=== PATIENT | male | born 1955 | race Hispanic/Latino ===

== ENCOUNTER 2023-04-13 22:38 | Emergency (ER) | payer OTHER, SELFPAY ==
[2023-04-13 22:45] VITALS: BP 127/80; PULSE 100; RESP 16; TEMP 37.4; O2SAT 97
--- NOTE | 2023-04-13 23:20 | ED.EPISTAXIS ---
HPI - Epistaxis General Chief complaint: Epistaxis Stated complaint: nosebleed Time Seen by Provider: 04/13/23 23:01 Source: patient Mode of arrival: ambulatory Limitations: no limitations History of Present Illness HPI Narrative: This is a 68 year old male that presents to the ER for right sided epistaxis ongoing today. Reports he was seen at [facility] today and was able to be discharged without packing. Has continued to have bleeding today which prompted him to be seen. Denies fevers. Related Data Allergies Allergy/AdvReac Type Severity Reaction Status Date / Time No Known Allergies Allergy Verified 04/13/23 22:52 Review of Systems Review of Systems: CONSTITUTIONAL: Denies fever ENT: Reports rhinorrhea, congestion, epistaxis and otalgia All systems reviewed & are unremarkable except as noted in HPI and below PMFSH Past Medical History Medical History (Updated 04/14/23 @ 00:49 by Nanette Lucero PA-C) History of hypertension Social History Social History (Updated 04/13/23 @ 23:25 by Nanette Lucero PA-C) Substance use: never Exam Narrative: GENERAL: Well-appearing, well-nourished, and in no acute distress. HEAD: Normocephalic, atraumatic. EYES: EOMI. ENT: Blood clot in the right nare. Mucous membranes moist. Oropharynx without tonsillar hypertrophy exudate or other lesions. Fluid behind the bilateral TMs which are bulging. Right TM erythematous with some blood behind the TM as well NECK: Supple. No adenopathy or masses. CHEST: No respiratory distress. HEART: Regular rate EXTREMITIES: Normal range of motion. No edema. SKIN: Warm, dry, no rash. NEURO: No focal deficits. Alert and oriented x3. PSYCH: Normal mood and affect Course Vital Signs Vital signs: Vital Signs Temperature 99.3 F 04/13/23 22:45 Pulse Rate 100 04/13/23 22:45 Respiratory Rate 16 04/13/23 22:45 Blood Pressure 127/80 04/13/23 22:45 Pulse Oximetry 97 04/13/23 22:45 Oxygen Delivery Room Air 04/13/23 22:45 Temperature 99.3 F 04/13/23 22:45 Pulse Rate 89 04/14/23 00:46 Respiratory Rate 17 04/14/23 00:46 Blood Pressure 132/91 H 04/14/23 00:46 Pulse Oximetry 98 04/14/23 00:46 Oxygen Delivery Room Air 04/13/23 22:45 Procedures Epistaxis Control right: Epistaxis Control Date: 04/14/23 Epistaxis Control Time: 00:15 Nose Prepped With: oxymetazoline Direct Inspection: unable to visualize Clots Removed by: manually Cautery Used: none Device Inserted: nasal tampon Device Size: 5 Patient Tolerated Procedure: well and no complications MDM - Epistaxis MDM Narrative Medical decision making narrative: Patient presents to the emergency department for epistaxis ongoing today. His vitals are stable. Bleeding controlled with rapid rhino. He is not on any anticoagulation. Will be given follow up with ENT. He was given warnings to return to the ER Also endorsing right ear pain. Right TM is bulging and erythematous. Will be started on oral antibiotics Differential Diagnosis Differential diagnosis: Likely anterior epistaxis, posterior epistaxis and other (otitis media) Critical Care Time Critical Care Time Critical Care Time: No Discharge Plan Discharge Clinical Impression: Epistaxis Otitis media Qualifiers: Otitis media type: unspecified Chronicity: acute Qualified Code(s): H66.90 - Otitis media, unspecified, unspecified ear Patient Disposition: Home, Self-Care Condition: Stable Instructions: Antibiotic Form, Nosebleed (ED), Ear Infection (ED) Additional Instructions: Return to the emergency department if you experience fever, nosebleed you are unable to control, or any other symptoms that are concerning to you. Over the counter pain medication as needed. Leave rhino rocket (packing) in place. Take oral antibiotic as prescribed Follow up with ENT. Call to make an appointment Patient Language: Slovak Prescrip
[2023-04-14 00:46] VITALS: BP 132/91; PULSE 89; RESP 17; O2SAT 98
== END 2023-04-14 01:01 | disposition home or self-care (01) ==
PROVIDERS: Emergency Provider Physician Assistant
DX: R04.0 Epistaxis (principal); H66.91 Otitis media, unspecified, right ear; I10 Essential (primary) hypertension
CPT/HCPCS: 30901; 99283; A9270

== ENCOUNTER 2023-04-15 07:21 | Emergency (ER) | payer OTHER, SELFPAY ==
[2023-04-15 07:22] VITALS: BP 139/81; PULSE 92; RESP 16; TEMP 37.2; O2SAT 98
--- NOTE | 2023-04-15 08:00 | ED.EPISTAXIS ---
HPI - Epistaxis General Chief complaint: Epistaxis Stated complaint: nosebleed Time Seen by Provider: 04/15/23 07:52 History of Present Illness HPI Narrative: 68-year-old male presenting to the emergency department for evaluation of a Stax. Patient was seen on the for recurrent bleeding and did have a rhino rocket placed. Patient states he feels he is still having some bleeding through the left Gomez, the right Gomez and is packed with a rhino rocket. Patient states this morning he had onset of a sneezing fit and had some bleeding. Upon arrival to the emergency department bleeding has resolved. patient has not yet had follow-up with ENT. Related Data Allergies Allergy/AdvReac Type Severity Reaction Status Date / Time No Known Allergies Allergy Verified 04/15/23 07:27 Review of Systems Review of Systems: All systems reviewed & are unremarkable except as noted in HPI and below PMFSH Past Medical History Medical History (Updated 04/15/23 @ 10:49 by Tk Anderson) History of hypertension Social History Social History (Updated 04/13/23 @ 23:25 by Nanette Lucero PA-C) Substance use: never Exam Narrative: APPEARANCE: Well appearing, no pain, no distress, well-nourished. HEAD: normocephalic, atraumatic. EYES: PERRLA/EOMI, conjunctivae clear. NOSE: Normal no drainage, rhino rocket in place in the right naris, some dried blood in left naris, no posterior bleeding NECK: Supple. No adenopathy, no masses. RESPIRATORY: Airway patent, respirations nonlabored. Clear to auscultation bilaterally, no rales, rhonchi, wheezing. CARDIOVASCULAR: Regular rate and rhythm without murmurs rubs or gallops. ABDOMINAL: Soft, nontender, nondistended, normal bowel sounds MUSCULOSKELETAL: Moves all extremities. Strength/ROM intact, No edema, No calf tenderness. NEURO: Alert. Cranial nerves II through XII intact. Grossly intact SKIN: Warm, dry. Normal Color Course Course Emergency Course: 68-year-old male present to the emergency department for evaluation epistaxis this morning that had resolved in the emergency department. Patient states he did have a intense sneezing fit and did have some increased bleeding. Upon arrival emergency department presents bleeding was resolved. Patient had his packing removed, patient was able to clear clots by blowing his nose and patient had no actively bleeding but due to his frequent bleeding rhino rocket was replaced. Patient does have follow-up Dr. Santos tomorrow. Vital Signs Vital signs: Vital Signs Temperature 99 F 04/15/23 07:22 Pulse Rate 92 04/15/23 07:22 Respiratory Rate 16 04/15/23 07:22 Blood Pressure 139/81 04/15/23 07:22 Pulse Oximetry 98 04/15/23 07:22 Oxygen Delivery Room Air 04/15/23 07:22 Temperature 99 F 04/15/23 07:22 Pulse Rate 92 04/15/23 07:22 Respiratory Rate 16 04/15/23 07:22 Blood Pressure 139/81 04/15/23 07:22 Pulse Oximetry 98 04/15/23 07:22 Oxygen Delivery Room Air 04/15/23 07:22 Procedures Epistaxis Control right: Time Out Performed: Yes Nose Prepped With: oxymetazoline Direct Inspection: yes Clots Removed by: blowing nose Cautery Used: none Device Inserted: hemostatic balloon Patient Tolerated Procedure: well and no complications MDM - Epistaxis Differential Diagnosis Differential diagnosis: Likely anterior epistaxis and posterior epistaxis Discharge Plan Discharge Clinical Impression: Epistaxis Patient Disposition: Home, Self-Care Condition: Stable Instructions: Antibiotic Form, Nosebleed (ED) Additional Instructions: Epistaxis care as directed. Continue to have close follow-up with ENT as scheduled tomorrow morning. Prescriptions: No Action amoxicillin-pot clavulanate 875-125 mg tablet 1 tablet PO Q12H 7 Days Qty: 14 0RF Follow-up/Referrals: Chema Santos MD [Physician] - UNKNOWN,DOCTOR [Primary Care Provider] -
== END 2023-04-15 11:26 | disposition home or self-care (01) ==
PROVIDERS: Emergency Provider Emergency Medicine
DX: R04.0 Epistaxis (principal); I10 Essential (primary) hypertension
CPT/HCPCS: 30901; 99283; A9270

== ENCOUNTER 2023-07-29 19:48 | Emergency (ER) | payer OTHER, SELFPAY ==
[2023-07-29 19:53] VITALS: BP 147/93; PULSE 96; RESP 16; TEMP 36.8; O2SAT 98
[2023-07-29 20:10] LABS: Basophils Percent Auto 0.2 % (0.2-1.2); Eosinophils Percent Auto 0.3 % (0-4.4); Hematocrit 44.8 % (42.0-52.0); Hemoglobin 14.8 g/dL (14.0-18.0); Immature Granulocyte Absolute 0.05 K/mm3 (0.00-0.031); Immature Granulocyte Percent A 0.4 % (0-0.5); Lymphocytes Absolute Auto 1.55 K/mm3 (0.9-3.2); Lymphocytes Percent Auto 12.4 % (18.3-44.2); Mean Corpuscular Hemoglobin 27.2 pg (26-34); Mean Corpuscular Volume 82.2 fl (80-100); Mean Platelet Volume 9.9 fl (7.4-10.4); Monocytes Absolute Auto 0.7 K/mm3 (0.1-0.6); Monocytes Percent Auto 5.6 % (2.6-8.5); Neutrophils Absolute Auto 10.1 K/mm3 (1.3-6.7); Neutrophils Percent Auto 81.1 % (45.5-73.1); Platelet Count Result 264 k/mm3 (150-375); Red Blood Count 5.45 M/mm3 (4.6-6.20); Red Cell Distribution Width 14.2 % (11.5-14.5); White Blood Count 12.5 K/mm3 (4.5-10.0)
[2023-07-29 20:23] LABS: Alanine Aminotransferase 24 U/L (6-50); Albumin Level 5.1 g/dL (3.5-5.1); Alkaline Phosphatase 108 U/L (38-126); Anion Gap 14 mmol/L (4-12); Aspartate Amino Transferase 27 U/L (17-59); Blood Urea Nitrogen 21 mg/dL (9-20); Calcium 11.1 mg/dL (8.4-10.2); Carbon Dioxide 17 mmol/L (22-30); Chloride 112 mmol/L (98-107); Estimated CRCL calculation 45 ml/min; Estimated Glomerular Filt Rate 51; Glucose 120 mg/dL (65-110); Lipase 203 U/L (23-300); Sodium 143 mmol/L (137-145)
--- NOTE | 2023-07-29 21:35 | PC.NURSE ---
Patient states we are leaving as they are walking out of the hospital.
== END 2023-07-29 21:35 | disposition left against medical advice (07) ==
PROVIDERS: Emergency Provider Emergency Medicine
DX: R11.2 Nausea with vomiting, unspecified (principal)
CPT/HCPCS: 36415; 80053; 83690; 85025; 99199

== ENCOUNTER 2024-03-19 13:12 | Emergency (ER) | payer OTHER, SELFPAY ==
--- NOTE | ~2024-03-19 | XR_ITS ---
EXAMINATION: XR humerus RT DATE: 03/19/2024 14:11 INDICATION: Right humerus pain. Injury. TECHNIQUE: 2 views of right humerus on 3 radiographs were obtained. COMPARISON: None. FINDINGS: Alignment is normal. No fracture. There is mild osteoarthritis of acromioclavicular joint. Glenohumeral joint is normal. IMPRESSION: 1. Mild osteoarthritis of acromioclavicular joint. Reviewed, dictated and finalized at location A. ATION COORDINATOR
[2024-03-19 13:28] VITALS: BP 134/73; PULSE 52; RESP 16; TEMP 37; O2SAT 98
--- NOTE | 2024-03-19 13:58 | ED.UPPEXIN ---
HPI - Extremity Injury (Upper) General Chief Complaint: Extremity Injury, Upper Stated Complaint: Right Shoulder Pain Time Seen by Provider: 03/19/24 13:45 Source: patient Mode of arrival: ambulatory Limitations: no limitations History of Present Illness HPI narrative: Mike is a 68-year-old male patient presenting to the clinic today with complaints of right shoulder and humerus pain. He reports he was pulling a refrigerator yesterday and injured his right arm. Has pain/bruising/swelling over the right biceps and to the anterior shoulder. He contacted his doctor's office and they wanted him to be evaluated and get x-rays. Related Data Home Medications ?Medication ?Instructions ?Recorded ?Confirmed ?Last Taken ?Type amlodipine 10 mg tablet 10 mg PO DAILY 04/16/23 03/19/24 Unknown History apixaban 2.5 mg tablet (Eliquis) 2.5 mg PO BID 04/16/23 03/19/24 Unknown History calcitriol 0.25 mcg capsule 0.25 mcg PO 3XW 04/16/23 03/19/24 Unknown History citalopram 10 mg tablet 0.05 mg PO DAILY 04/16/23 03/19/24 Unknown History icosapent ethyl 0.5 gram capsule 2 g PO BID 04/16/23 03/19/24 Unknown History magnesium oxide 400 mg PO DAILY 04/16/23 03/19/24 Unknown History mycophenolate sodium 180 mg 1,080 mg PO BID 04/16/23 03/19/24 Unknown History tablet,delayed release omeprazole 20 mg capsule,delayed 20 mg PO DAILY 04/16/23 03/19/24 Unknown History release potassium chloride 10 mEq 10 meq PO DAILY 04/16/23 03/19/24 Unknown History capsule,extended release rosuvastatin 20 mg tablet 20 mg PO DAILY 04/16/23 03/19/24 Unknown History sirolimus 0.5 mg tablet 0.5 mg PO DAILY 04/16/23 03/19/24 Unknown History sirolimus 0.5 mg tablet (Rapamune) 0.5 mg PO .3x 04/16/23 03/19/24 Unknown History tamsulosin 0.4 mg capsule 0.4 mg PO DAILY 04/16/23 03/19/24 Unknown History Allergies Allergy/AdvReac Type Severity Reaction Status Date / Time No Known Allergies Allergy Verified 03/19/24 13:32 Review of Systems Review of Systems: Pertinent positives per HPI. Patient denies any fever, chills, rash, headache, visual changes, dizziness, cough, runny nose, sore throat, shortness of breath, chest pain, palpitations, nausea, vomiting, diarrhea, constipation, abdominal pain, or any urinary issues. [facility] Past Medical History Medical History History of hypertension Surgical History Surgical History Kidney replaced by transplant Family History Family History Mother Cancer Other Hypertension Social History Social History Smoking status: Never smoker Tobacco type: cigarettes Smoking end date: 03/24/86 Alcohol intake: never Substance use: never Substance use type: does not use Do You Feel Safe in your Home?: Yes Lack of Transportation: No Lack of Food: Never True Current Housing: I Have Housing Concerned About Future Housing: No Difficulty Paying Gas/Electric Bills: No Difficulty Paying for Meds: No Currently Unemployed: No Education: Grade School Difficulty w/ Childcare or Family Care: No Comments At the time of my signature, I reviewed and agree with the nursing past medical, surgical, social, and family history. There is no relevant family history pertinent to the patient complaint. Exam Narrative: General: Well-developed, well nourished, in no apparent distress Head: Normocephalic, atraumatic. Cardio: Regular rate and rhythm, s1 and s2 normal, no murmur appreciated. Resp: Clear to auscultation bilaterally, no rhonchi, rales, wheezing or rubs. Musculoskeletal: No deformity, bruising, swelling, and tenderness to palpation over the right biceps muscle, able to flex and muscle against resistance, tender to palpation over the anterior shoulder, grossly normal range of motion, muscle strength strong and equal, peripheral pulse strong, no edema, no cyanosis, normal gait and station Course Course Emergency Course: Portions of this record may have been created with voice recognition software. Level of Care: Express Care Visit Vital Signs Vital signs: Vital Signs Temperature 37.0 C 03/19/24 13:28 Pulse Rate 52 L 03/19/24 13:28 Respiratory Rate 16 03/19/24 13:28 Blood Pressure 134/73 03/19/24 13:28 Pulse Oximetry 98 03/19/24 13:28 Oxygen Delivery Room Air 03/19/24 13:28 Temperature 37.0 C 03/19/24 13:28 Pulse Rate 52 L 03/19/24 13:28 Respiratory Rate 16 03/19/24 13:28 Blood Pressure 134/73 03/19/24 13:28 Pulse Oximetry 98 03/19/24 13:28 Oxygen Delivery Room Air 03/19/24 13:28 Vital signs reviewed MDM - Extremity Injury (Upper) MDM Narrative Medical decision making narrative: At the time of visit patient is resting comfortably on the exam table. Patient appears to be nontoxic. Diagnostics: X-ray of the humerus was performed and was negative for any sign of fracture or malalignment. Plan: I suspect patient has a right shoulder strain, muscle strain. X-rays negative. Wear arm sling for 3-5 days. May take Tylenol as needed for pain Supportive measures were discussed with the patient and they voiced understanding discharge instructions and agrees to treatment plan. Return precautions reviewed Differential Diagnosis Differential diagnosis: Likely fracture of humerus and other (Biceps muscle tear, tendon tear, rotator cuff injury, contusion, soft tissue swelling) Discharge Plan Discharge Clinical Impression: Other injury of muscle, fascia and tendon of long head of biceps, right arm, initial encounter Right shoulder strain Qualifiers: Encounter type: initial encounter Qualified Code(s): S46.911A - Strain of unspecified muscle, fascia and tendon at shoulder and upper arm level, right arm, initial encounter Patient Disposition: Home, Self-Care Condition: Stable Instructions: Antibiotic Form, Muscle Strain (ED), Shoulder Sprain (ED) Additional Instructions: La radiograf?a es negativa para cualquier signo de fractura o seamus alineaci?n. Muestra osteoartritis leve en la articulaci?n AC. Sospecho que tiene uzair lesi?n o distensi?n en el m?sculo b?ceps y el hombro. Descansar, congelar, elevar Use un cabestrillo para el brazo binta los pr?ximos 3 a 5 d?as. Se recomienda realizar un seguimiento con el m?dico de atenci?n primaria la pr?xima semana para uzair evaluaci?n adicional. Patient Language: Hebrew Prescriptions: No Action amlodipine 10 mg tablet 10 mg PO DAILY calcitriol 0.25 mcg capsule 0.25 mcg PO 3XW Rx Instructions: administer after dialysis on dialysis days. Friday, Friday and Friday citalopram 10 mg tablet 0.05 mg PO DAILY Eliquis 2.5 mg tablet 2.5 mg PO BID icosapent ethyl 0.5 gram capsule 2 g PO BID magnesium oxide 400 mg magnesium tablet 400 mg PO DAILY mycophenolate sodium 180 mg tablet,delayed release (DR/EC) 1,080 mg PO BID omeprazole 20 mg capsule,delayed release(DR/EC) 20 mg PO DAILY potassium chloride 10 mEq capsule, extended release 10 meq PO DAILY rosuvastatin 20 mg tablet 20 mg PO DAILY sirolimus 0.5 mg tablet 0.5 mg PO DAILY sirolimus [Rapamune] 0.5 mg tablet 0.5 mg PO .3x tamsulosin 0.4 mg capsule 0.4 mg PO DAILY Follow-up/Referrals: Charly Giles [Other] Time of Disposition: 14:27 Quality NIHSS Nursing Documentation ED NIHSS nursing documentation: reviewed/agree
== END 2024-03-19 14:35 | disposition home or self-care (01) ==
PROVIDERS: Emergency Provider Nurse Practitioner Family
DX: S46.191A Other injury of muscle, fascia and tendon of long head of biceps, right arm, initial encounter (principal); S46.911A Strain of unspecified muscle, fascia and tendon at shoulder and upper arm level, right arm, initial encounter; X50.0XXA Overexertion from strenuous movement or load, initial encounter; Z87.891 Personal history of nicotine dependence; I10 Essential (primary) hypertension; Z94.0 Kidney transplant status; Z79.01 Long term (current) use of anticoagulants
CPT/HCPCS: 73060; 99213; G0463

== ENCOUNTER 2024-09-09 12:00 | Emergency (ER) | payer MEDICARE, MEDICAID, SELFPAY ==
[2024-09-09 12:08] VITALS: BP 173/81; PULSE 56; RESP 18; TEMP 38.3
[2024-09-09 12:58] LABS: EDCOVIDSCREEN Negative (Negative); EDINFLUASCREEN Negative (Negative); EDINFLUBSCREEN Negative (Negative)
--- NOTE | 2024-09-09 13:06 | ED.URI ---
HPI - URI/Sore Throat General Chief Complaint: Upper Respiratory Infection Stated Complaint: Cough/Chills Source: patient Mode of arrival: ambulatory Limitations: no limitations History of Present Illness HPI Narrative: Patient is a 69 year old male who presents to the clinic with a cough, sore throat, body aches, and fever x 3 days. He has been taking Tylenol over the counter but has had minimal relief. He does state that he has a history of pneumonia and a kidney transplant. Denies any shortness of breath, nausea, vomiting, or diarrhea. Related Data Home Medications ?Medication ?Instructions ?Recorded ?Confirmed ?Last Taken ?Type amlodipine 10 mg tablet 10 mg PO DAILY 04/16/23 03/19/24 Unknown History apixaban 2.5 mg tablet (Eliquis) 2.5 mg PO BID 04/16/23 03/19/24 Unknown History calcitriol 0.25 mcg capsule 0.25 mcg PO 3XW 04/16/23 03/19/24 Unknown History citalopram 10 mg tablet 0.05 mg PO DAILY 04/16/23 03/19/24 Unknown History icosapent ethyl 0.5 gram capsule 2 g PO BID 04/16/23 03/19/24 Unknown History magnesium oxide 400 mg PO DAILY 04/16/23 03/19/24 Unknown History mycophenolate sodium 180 mg 1,080 mg PO BID 04/16/23 03/19/24 Unknown History tablet,delayed release omeprazole 20 mg capsule,delayed 20 mg PO DAILY 04/16/23 03/19/24 Unknown History release potassium chloride 10 mEq 10 meq PO DAILY 04/16/23 03/19/24 Unknown History capsule,extended release rosuvastatin 20 mg tablet 20 mg PO DAILY 04/16/23 03/19/24 Unknown History sirolimus 0.5 mg tablet 0.5 mg PO DAILY 04/16/23 03/19/24 Unknown History sirolimus 0.5 mg tablet (Rapamune) 0.5 mg PO .3x 04/16/23 03/19/24 Unknown History tamsulosin 0.4 mg capsule 0.4 mg PO DAILY 04/16/23 03/19/24 Unknown History Allergies Allergy/AdvReac Type Severity Reaction Status Date / Time No Known Allergies Allergy Verified 09/09/24 12:03 Review of Systems Review of Systems: CONSTITUTIONAL: Reports body aches and fever. Denies chills or sweats. EYES: Denies visual changes, redness, or discharge. ENT: Reports sore throat. Denies rhinorrhea, congestion or otalgia. CARDIOVASCULAR: Denies chest pain, palpitations, or edema. RESPIRATORY: Reports cough. Denies dyspnea. GASTROINTESTINAL: Denies abdominal pain, nausea, vomiting, or diarrhea. GENITOURINARY: Denies dysuria or hematuria. SKIN: Denies rash, itching, or wounds. MUSCULOSKELETAL: Denies back pain, joint pain, or myalgia. NEUROLOGIC: Denies headache, numbness, tingling, or weakness. PSYCH: Denies depression or anxiety. All systems reviewed & are unremarkable except as noted in HPI and below PMFSH Past Medical History Medical History History of hypertension Surgical History Surgical History Kidney replaced by transplant Family History Family History Mother Cancer Other Hypertension Social History Social History Smoking status: Never smoker Tobacco type: cigarettes Smoking end date: 03/24/86 Alcohol intake: never Substance use: never Substance use type: does not use Do You Feel Safe in your Home?: Yes Lack of Transportation: No Lack of Food: Never True Current Housing: I Have Housing Concerned About Future Housing: No Difficulty Paying Gas/Electric Bills: No Difficulty Paying for Meds: No Currently Unemployed: No Education: Grade School Difficulty w/ Childcare or Family Care: No Comments At time of signature, I have reviewed and agree with nursing past medical, surgical, social and family history unless otherwise noted. Please see nursing chart for further information. There is no relevant family history pertinent to the presenting complaint. Exam Narrative: GENERAL: Well-appearing, well-nourished, and in no acute distress. EYES: EOMI. No redness or drainage. Conjunctivae normal. ENT: Mucous membranes pink and moist. Nares clear. No rhinorrhea. TMs normal bilaterally. Throat Erythematous without tonsillar exudate, uvula midline. NECK: Normal AROM. Supple. No lymphadenopathy. CHEST: No respiratory distress. Clear to auscultation. Active wet cough. HEART: Regular rate and rhythm. No murmur appreciated. Normal peripheral pulses. ABDOMEN: Soft, nontender, nondistended, normal active bowel sounds. SKIN: Warm, dry, no rash. Capillary refill normal. Normal skin turgor. NEURO: No focal deficits. Alert and oriented x3. Gait steady. PSYCH: Normal affect. No signs of depression or anxiety. Course Course Level of Care: Express Care Visit Vital Signs Vital signs: Vital Signs Temperature 101 F H 09/09/24 12:08 Pulse Rate 56 L 09/09/24 12:08 Respiratory Rate 18 09/09/24 12:08 Blood Pressure 173/81 H 09/09/24 12:08 Temperature 101 F H 09/09/24 12:08 Pulse Rate 56 L 09/09/24 12:08 Respiratory Rate 18 09/09/24 12:08 Blood Pressure 173/81 H 09/09/24 12:08 MDM - URI/Sore Throat MDM Narrative Medical decision making narrative: Discussed physical exam findings. Prescription given for Prednisone, Augmentin, and Benzonatate. Advised supportive measures and signs/symptoms to go to the ER. Pt is appropriate for outpt treatment and follow up. Differential Diagnosis Differential diagnosis: Likely upper respiratory infection, viral infection, bronchitis, influenza and other (covid, strep throat) Lab Data Attestation: I reviewed the patient's lab results. Labs: Lab Results 09/09/24 Range/Units 12:17 POC Influenza A Ag Negative (Negative) POC Influenza B Ag Negative (Negative) POC SARS CoV-2 Ag Negative (Negative) POC Grp A Strep Screen Negative (Negative) Critical Care Time Critical Care Time Critical Care Time: No Discharge Plan Discharge Clinical Impression: Acute purulent bronchitis, History of pneumonia Fever Qualifiers: Fever type: unspecified Qualified Code(s): R50.9 - Fever, unspecified Patient Disposition: Home Condition: Stable Instructions: Antibiotic Form, Acute Bronchitis (ED) Additional Instructions: Take antibiotic as prescribed. Take steroid as prescribed. Use benzonatate as directed. Recommend Flonase spray and Zyrtec (or Claritin/Maranda) Tylenol every 8 hours as needed for pain Symptomatic treatment includes: rest, fluids, and increase humidity of the air at home. Follow up with your primary care provider in 1 week. Go to the ER for worsening symptoms or concerns. Patient Language: Danish Prescriptions: New prednisone 10 mg tablet 30 mg PO DAILY 5 Days Qty: 15 0RF benzonatate 200 mg capsule 200 mg PO BID PRN (Reason: cough) Qty: 20 0RF amoxicillin-pot clavulanate 875-125 mg tablet 1 tablet PO Q12H 7 Days Qty: 14 0RF No Action amlodipine 10 mg tablet 10 mg PO DAILY calcitriol 0.25 mcg capsule 0.25 mcg PO 3XW Rx Instructions: administer after dialysis on dialysis days. Friday, Friday and Friday citalopram 10 mg tablet 0.05 mg PO DAILY Eliquis 2.5 mg tablet 2.5 mg PO BID icosapent ethyl 0.5 gram capsule 2 g PO BID magnesium oxide 400 mg magnesium tablet 400 mg PO DAILY mycophenolate sodium 180 mg tablet,delayed release (DR/EC) 1,080 mg PO BID omeprazole 20 mg capsule,delayed release(DR/EC) 20 mg PO DAILY potassium chloride 10 mEq capsule, extended release 10 meq PO DAILY rosuvastatin 20 mg tablet 20 mg PO DAILY sirolimus 0.5 mg tablet 0.5 mg PO DAILY sirolimus [Rapamune] 0.5 mg tablet 0.5 mg PO .3x tamsulosin 0.4 mg capsule 0.4 mg PO DAILY Follow-up/Referrals: PHYSICIAN,SOURCING ASSISTANT [Primary Care Provider] - Time of Disposition: 13:28
[2024-09-09 13:39] LABS: EDSTREPNEGPOS1 Negative (Negative)
== END 2024-09-09 13:33 | disposition home or self-care (01) ==
PROVIDERS: Nurse Practitioner Family
DX: J20.9 Acute bronchitis, unspecified (principal); R50.9 Fever, unspecified; Z87.01 Personal history of pneumonia (recurrent); Z20.822 Contact with and (suspected) exposure to COVID-19; I10 Essential (primary) hypertension; Z94.0 Kidney transplant status; Z79.01 Long term (current) use of anticoagulants
CPT/HCPCS: 87081; 87426; 87804; 87880; 99213; G0463